=== PATIENT | female | born 1950 | race Caucasian/White ===

== ENCOUNTER → 2016-08-21 | Outpatient (CLI) | payer BC ==
--- NOTE | 2016-08-22 19:05 | Diagnostic Imaging Report ---
Bilateral screening mammogram The current study was also evaluated with a Computer Aided Detection (CAD) system. Indication: Screening. No current complaints stated on the questionnaire. COMPARISON: 11/09/15. FINDINGS: The breasts are composed of heterogeneously dense parenchyma which may decrease mammographic sensitivity. There is no mass, architectural distortion or suspicious cluster of calcification. Allowing for technique and positional differences, no suspicious change is seen. IMPRESSION: No significant change. ACR BI-RADS Category 2: Benign findings. Result letter will be mailed to the patient. Note: At least 10% of breast cancer is not imaged by mammography. Dictated by: Dictated on workstation # [id number]
== END ==
LOC: RAD 06:56
PROVIDERS: ATTEND Obstetrics & Gynecology
DX: Z12.31 Encounter for screening mammogram for malignant neoplasm of breast (principal)
CPT/HCPCS: 77067

== ENCOUNTER → 2017-08-29 | Outpatient (CLI) | payer BC ==
--- NOTE | 2017-08-29 11:48 | Diagnostic Imaging Report ---
Digital mammogram bilateral screening. The study was compared to the prior exam of 08/21/2016, 11/09/2015 and 07/17/2015. At this time, there are no current complaints. The current study was also evaluated with a Computer Aided Detection (CAD) system. FINDINGS: The fibroglandular tissue in both breasts is heterogeneously dense. This does limit the sensitivity of this exam. Overall, there does not appear to have been any significant change when compared to the prior study. No primary or secondary sign of malignancy is noted. IMPRESSION: There is no radiographic evidence for malignancy. ACR BI-RADS Category 1: Negative. Result letter will be mailed to the patient. Note: At least 10% of breast cancer is not imaged by mammography. Dictated by: Dictated on workstation # [id number]
== END ==
LOC: RAD 07:42
PROVIDERS: ATTEND Obstetrics & Gynecology
DX: Z12.31 Encounter for screening mammogram for malignant neoplasm of breast (principal)
CPT/HCPCS: 77067

== ENCOUNTER → 2018-09-01 | Outpatient (CLI) | payer MEDICARE ==
--- NOTE | 2018-09-02 11:10 | Diagnostic Imaging Report ---
INDICATION: Routine screening. EXAMINATION: Digital mammogram bilateral screening with 3-D tomosynthesis. The current study was also evaluated with a Computer Aided Detection (CAD) system. This study was compared to the prior exams of 08/29/2017, 08/21/2016, 11/09/2015 and 07/17/2015. At this time, there are no current complaints. FINDINGS: The fibroglandular tissue in both breasts is heterogeneously dense. This does limit the sensitivity of this exam. Overall, there does not appear to have been any significant change when compared to the prior study. No primary or secondary sign of malignancy is noted. IMPRESSION: There is no radiographic evidence for malignancy. ACR BI-RADS Category 1: Negative. Result letter will be mailed to the patient. Note: At least 10% of breast cancer is not imaged by mammography. Dictated by: Dictated on workstation # [id number]
== END ==
LOC: RAD 07:14
PROVIDERS: ATTEND Obstetrics & Gynecology
DX: Z12.31 Encounter for screening mammogram for malignant neoplasm of breast (principal)
CPT/HCPCS: 77067

== ENCOUNTER 2018-09-17 08:45 | Outpatient (CLI) | payer MEDICARE ==
[~2018-09-17] VITALS: Ht 160 cm; Wt 64.9 kg
[2018-09-17] MEDS ORDERED: ESTR1TAB24 PO (09:01)
[2018-09-17] MEDS ORDERED: CETI10TA20 PO (09:01)
[2018-09-17] MEDS ORDERED: CYCL10TA9 PO (09:01)
[2018-09-17] MEDS ORDERED: HYDR200T46 PO (09:01)
== END 2018-09-17 09:08 | disposition home or self-care (01) ==
LOC: PREOP 08:45
PROVIDERS: ATTEND Specialist
DX: Z01.818 Encounter for other preprocedural examination (principal)

== ENCOUNTER 2018-09-18 06:03 | Day surgery (SDC) | payer MEDICARE ==
[~2018-09-18] VITALS: Ht 160 cm; Wt 64.9 kg
[~2018-09-18 06:03] MED LIST: CETI10TA20 PO; CYCL10TA9 PO; ESTR1TAB24 PO; HYDR200T46 PO
--- OUTSIDE RECORDS SUMMARY | 2018-09-18 06:05 | XMS REPORT ---
Author Author WILTON NOBLES [facility] Address [address] [place] [address] Care Team Providers Care Gas Plant Technician Name Role Phone WILTON NOBLES Unavailable PROBLEMS Type Condition ICD9-CM Code [id number] Code Onset Dates Condition Status SNOMED Code Problem Need for prophylactic vaccination and inoculation, Influenza V04.81 Active [id number] ALLERGIES No Information ENCOUNTERS Encounter Location Date Diagnosis [place] [id number] [place] [phone] Feb, Encounter for immunization [place] [id number] [place] [phone] Mar, Encounter for immunization [place] [id number] [place] [phone] Mar, Encounter for immunization [place] [address] [phone] Feb, [place] [id number] [place] [phone] Feb, IMMUNIZATIONS Vaccine Route Administration Date Status FLUARIX QUAD (3 AND UP) 2017 IM Intramuscular Mar 06, 2017 Administered SOCIAL HISTORY Never Assessed REASON FOR VISIT Flu shot PLAN OF CARE VITAL SIGNS MEDICATIONS Unknown Medications RESULTS No Results PROCEDURES Procedure Date Ordered Result Body Site FLUARIX QUAD (3 & UP)-GSK-2015 Mar 06, 2017 SINGLE IMMUNIZATION ADMIN Mar 06, 2017 INSTRUCTIONS MEDICATIONS ADMINISTERED No Known Medications
--- OUTSIDE RECORDS SUMMARY | 2018-09-18 06:06 | XMS REPORT ---
Author Author RUBIN LAKHANI Organization [employer] Address Unknown Phone Unavailable Care Team Providers Care Learning Strategist Name Role Phone RUBIN LAKHANI CP Unavailable Allergies No Known Allergies Problems Problem Type Condition Code Onset Dates Condition Status Assessment Encounter for immunization Z23 Active Problem Need for prophylactic vaccination and inoculation, Influenza V04.81 Active Medications No Known Medications Procedures Procedure Coding System Code Date SINGLE IMMUNIZATION ADMIN CPT-4 41080 Mar 29, 2015 FLUARIX QUAD (3 & UP)-GSK-2014 CPT-4 16035 Mar 29, 2015 Results No Known Results Immunizations Vaccine Administration Date FLUARIX QUAD (3 & UP)-GSK-2014Mar 29, 2015 Summary Purpose [employer] Submission
--- OUTSIDE RECORDS SUMMARY | 2018-09-18 06:06 | XMS REPORT | Continuity of Care Document ---
Author Organization Unknown Address Unknown Allergies Active Description Code Type Severity Reaction Onset Reported/Identified Relationship to Patient Clinical Status Yes codeine [id number] Drug Allergy Unknown NAUSEA/VOMITING 09/17/2018 Medications There is no data. Problems Date Dx Coded Attending Type Code Diagnosis Diagnosed By 03/11/2014 V04.81 FLU SHOT 06/14/2014 Ot V76.12 06/14/2014 EILEEN FELIX, VALORIE Montes Ot V76.12 06/30/2014 EILEEN FELIX, VALORIE Montes Ot V76.12 07/17/2015 Ot V76.12 07/17/2015 VALORIE ARELLANO MD Ot V76.12 07/17/2015 EILEEN FELIX, VALORIE Montes Ot V76.12 07/21/2015 VALORIE ARELLANO MD Ot Z12.31 08/03/2015 VALORIE ARELLANO MD Ot Z12.31 08/23/2015 VALORIE ARELLANO MD Ot R92.8 11/10/2015 VALORIE ARELLANO MD Ot R92.8 OTH ABN AND INCONCLUSIVE FINDINGS ON DX 11/30/2015 VALORIE ARELLANO MD Ot R92.8 OTH ABN AND INCONCLUSIVE FINDINGS ON DX 08/21/2016 Ot V76.12 OTH SCREEN MAMMO-MALIGN NEOPLASM OF APURVA 08/21/2016 VALORIE ARELLANO MD Ot V76.12 OTH SCREEN MAMMO-MALIGN NEOPLASM OF APURVA 08/21/2016 VALORIE ARELLANO MD Ot V76.12 OTH SCREEN MAMMO-MALIGN NEOPLASM OF APURVA 08/21/2016 VALORIE ARELLANO MD Ot Z12.31 ENCNTR SCREEN MAMMOGRAM FOR MALIGNANT NE 08/21/2016 VALORIE ARELLANO MD Ot R92.8 OTH ABN AND INCONCLUSIVE FINDINGS ON DX 08/21/2016 VALORIE ARELLANO MD, Ot R92.8 OTH ABN AND INCONCLUSIVE FINDINGS ON DX 09/09/2016 VALORIE ARELLANO MD, Ot Z12.31 ENCNTR SCREEN MAMMOGRAM FOR MALIGNANT NE 09/01/2017 VALORIE ARELLANO MD, Ot Z12.31 ENCNTR SCREEN MAMMOGRAM FOR MALIGNANT NE 09/11/2017 VALORIE ARELLANO MD, Ot Z12.31 ENCNTR SCREEN MAMMOGRAM FOR MALIGNANT NE 08/25/2018 VALORIE ARELLANO MD, Ot V76.12 OTH SCREEN MAMMO-MALIGN NEOPLASM OF APURVA 08/25/2018 VALORIE ARELLANO MD, Ot V76.12 OTH SCREEN MAMMO-MALIGN NEOPLASM OF APURVA 08/25/2018 VALORIE ARELLANO MD, Ot Z12.31 ENCNTR SCREEN MAMMOGRAM FOR MALIGNANT NE 08/25/2018 VALORIE ARELLANO MD, Ot R92.8 OTH ABN AND INCONCLUSIVE FINDINGS ON DX 08/25/2018 VALORIE ARELLANO MD, Ot R92.8 OTH ABN AND INCONCLUSIVE FINDINGS ON DX 08/25/2018 VALORIE ARELLANO MD, Ot Z12.31 ENCNTR SCREEN MAMMOGRAM FOR MALIGNANT NE 08/25/2018 VALORIE ARELLANO MD, Ot Z12.31 ENCNTR SCREEN MAMMOGRAM FOR MALIGNANT NE 09/01/2018 VALORIE ARELLANO MD, Ot V76.12 OTH SCREEN MAMMO-MALIGN NEOPLASM OF APURVA 09/01/2018 VALORIE ARELLANO MD, Ot V76.12 OTH SCREEN MAMMO-MALIGN NEOPLASM OF APURVA 09/01/2018 VALORIE ARELLANO MD, Ot Z12.31 ENCNTR SCREEN MAMMOGRAM FOR MALIGNANT NE 09/01/2018 VALORIE ARELLANO MD, Ot R92.8 OTH ABN AND INCONCLUSIVE FINDINGS ON DX 09/01/2018 VALORIE ARELLANO MD, Ot R92.8 OTH ABN AND INCONCLUSIVE FINDINGS ON DX 09/01/2018 VALORIE ARELLANO MD, Ot Z12.31 ENCNTR SCREEN MAMMOGRAM FOR MALIGNANT NE 09/01/2018 VALORIE ARELLANO MD, Ot Z12.31 ENCNTR SCREEN MAMMOGRAM FOR MALIGNANT NE 09/02/2018 VALORIE ARELLANO MD, Ot Z12.31 ENCNTR SCREEN MAMMOGRAM FOR MALIGNANT NE 09/17/2018 CONOR FONSECA MD Ot Z01.818 ENCOUNTER FOR OTHER PREPROCEDURAL EXAMIN 09/17/2018 CONOR FONSECA MD Ot Z01.818 ENCOUNTER FOR OTHER PREPROCEDURAL EXAMIN 09/17/2018 CONOR FONSECA MD Ot Z01.818 ENCOUNTER FOR OTHER PREPROCEDURAL EXAMIN 09/17/2018 CONOR FONSECA MD Ot Z01.818 ENCOUNTER FOR OTHER PREPROCEDURAL EXAMIN 09/18/2018 VALORIE ARELLANO MD, Ot V76.12 OTH SCREEN MAMMO-MALIGN NEOPLASM OF APURVA 09/18/2018 VALORIE ARELLANO MD, Ot V76.12 OTH SCREEN MAMMO-MALIGN NEOPLASM OF APURVA 09/18/2018 VALORIE ARELLANO MD, Ot Z12.31 ENCNTR SCREEN MAMMOGRAM FOR MALIGNANT NE 09/18/2018 VALORIE ARELLANO MD, Ot R92.8 OTH ABN AND INCONCLUSIVE FINDINGS ON DX 09/18/2018 VALORIE ARELLANO MD, Ot R92.8 OTH ABN AND INCONCLUSIVE FINDINGS ON DX 09/18/2018 VALORIE ARELLANO MD, Ot Z12.31 ENCNTR SCREEN MAMMOGRAM FOR MALIGNANT NE 09/18/2018 VALORIE ARELLANO MD, Ot Z12.31 ENCNTR SCREEN MAMMOGRAM FOR MALIGNANT NE 09/18/2018 VALORIE ARELLANO MD, Ot Z12.31 ENCNTR SCREEN MAMMOGRAM FOR MALIGNANT NE Procedures There is no data. Results There is no data. Encounters ACCT No. Visit Date/Time Discharge Status Pt. Type Provider Facility Loc./Unit Complaint [id number] 04/11/2014 09:24:00 04/11/2014 23:59:59 CLS Outpatient [id number] 09/17/2018 08:45:00 09/17/2018 09:08:00 DIS Outpatient CONOR FONSECA MD [facility] PREOP RIGHT CATARACT EXTRACTION WITH IOL [id number] 09/01/2018 07:14:00 09/01/2018 23:59:59 CLS Outpatient VALORIE ARELLANO MD [facility] RAD ROUTINE SCREENING [id number] 08/29/2017 07:42:00 08/29/2017 23:59:59 CLS Outpatient VALORIE ARELLANO MD [facility] RAD Z12.31 [id number] 08/21/2016 06:56:00 08/21/2016 23:59:59 CLS Outpatient VALORIE ARELLANO MD [facility] RAD SCREENING [id number] 11/09/2015 08:37:00 11/09/2015 23:59:59 CLS Outpatient VALORIE ARELLANO MD [facility] RAD 3 MO F/U R BREAST [id number] 07/26/2015 07:28:00 07/26/2015 23:59:59 CLS Outpatient VALORIE ARELLANO MD [facility] RAD ABNORMAL MAMMOGRAM [id number] 07/17/2015 14:48:00 07/17/2015 23:59:59 CLS Outpatient VALORIE ARELLANO MD [facility] RAD SCREENING [id number] 06/14/2014 07:20:00 06/14/2014 23:59:59 CLS Outpatient VALORIE ARELLANO MD [facility] RAD SCREENING [id number] 05/10/2013 06:50:00 05/10/2013 23:59:59 CLS Outpatient VALORIE ARELLANO MD [facility] RAD SCREENING [id number] 09/25/2018 07:30:00 PEN Preadmit CONOR FONSECA MD [facility] CATARACT LEFT EYE [id number] 09/18/2018 06:03:00 ACT Outpatient CONOR FONSECA MD [facility] LEFT CATARACT [id number] 09/30/2011 09:40:00 Document Registration [id number] 07/06/2014 09:31:23 07/06/2014 23:59:59 CLS Outpatient Shoaib-Phillip, P Xi
--- OUTSIDE RECORDS SUMMARY | 2018-09-18 06:06 | XMS REPORT ---
Author RUBIN Anders [facility] e[employer] Address Unknown Phone Unavailable Care Team Providers Care Zigzag Appliquer Name Role Phone RUBIN LAKHANI CP Unavailable Allergies No Known Allergies Problems Problem Type Condition Code Onset Dates Condition Status Assessment Encounter for immunization Z23 Active Problem Need for prophylactic vaccination and inoculation, Influenza V04.81 Active Medications No Known Medications Procedures Procedure Coding System Code Date SINGLE IMMUNIZATION ADMIN CPT-4 51085 Apr 09, 2016 FLUARIX QUAD P-FREE 3 AND UP .50 2015 CPT-4 51534 Apr 09, 2016 Results No Known Results Immunizations Vaccine Administration Date FLUARIX QUAD P-FREE 3 AND UP .50 2015Apr 09, 2016 Summary Purpose eClinicalWorks Submission
[2018-09-18 06:07] VITALS: BP 141/88
[2018-09-18] MEDS ORDERED: TIMOLOL MALEATE 0.5% 5 ML (TIMOPTIC) BTL OU PRN (06:15)
[2018-09-18] MEDS ORDERED: POVIDONE (BETADINE) OPHTH SOLN 5% 30 ML OP ONE (06:15)
[2018-09-18] MEDS ORDERED: MOXIFLOXACIN OPHTH SOLN 5 MG/ML 0.3 ML SYRINGE OP ONE (06:15)
[2018-09-18] MEDS ORDERED: LIDOCAINE PF 1% 2 ML AMP IR PRN (06:15)
[2018-09-18] MEDS: TETRACAINE 0.5% OPHTH SOLN 4 ML BTL (SINGLE DOSE ONLY) OU PRN ×4 (06:32→06:52)
[2018-09-18] MEDS: CYCLOPENTOLATE 1% (CYCLOGYL) 2 ML DROPS OP SCH ×3 (06:41→06:52)
[2018-09-18] MEDS: PHENYLEPHRINE 10% OPHTH (NEO-SYN) 5 ML BTL OU SCH ×3 (06:41→06:52)
[2018-09-18] MEDS ORDERED: MIDAZOLAM 2 MG/2 ML (VERSED) VIAL ONE (06:44)
--- NOTE | 2018-09-18 06:59 | Ophthalmologist Pre-Op Note ---
Pre-Operative Progress Note H&P Reviewed The H&P was reviewed, patient examined and no changes noted. Date H&P Reviewed: Sep 18, 2018 Time H&P Reviewed: 06:59 Pre-Op Dx Secondary Cataract, Right Eye CONOR FONSECA MD Sep 18, 2018 06:59
--- NOTE | 2018-09-18 07:18 | Ophthalmologist Pre-Op Note ---
Pre-Operative Progress Note H&P Reviewed The H&P was reviewed, patient examined and no changes noted. Date H&P Reviewed: Sep 18, 2018 Time H&P Reviewed: 07:18 Pre-Op Dx Cataract, Left Eye CONOR FONSECA MD Sep 18, 2018 07:18
[2018-09-18] MEDS ORDERED: acetaZOLAMIDE ER 500 MG CAP (DIAMOX SEQUELS) PO ONE (07:30)
--- NOTE | 2018-09-18 07:41 | Ophthalmology Operative Report ---
Cataract removal/placement IOL PREOPERATIVE DIAGNOSIS: Cataract Left Eye POSTOPERATIVE DIAGNOSIS: Cataract Left Eye PROCEDURE: Cataract removal and placement of posterior chamber implant, left eye SURGEON: Jaswant Fonseca ANESTHESIA: Topical with sedation COMPLICATIONS: None ESTIMATED BLOOD LOSS: Minimal DESCRIPTION OF PROCEDURE: After proper informed consent was obtained, the patient, a 68 female, was taken to the Operating Room and the left eye was anesthetized with tetracaine. The left eye was then prepped and draped in the usual manner. A wire lid speculum was placed. A paracentesis was made at the left hand position. Preservative free lidocaine was injected into the anterior chamber followed by viscoelastic. A clear corneal incision was made in the temporal position. A capsulorrhexis was preformed and the central nuclear and cortical material were removed. The posterior capsule was polished and an Vitor 23.0 AU00T0 was placed into the capsular bag. The residual viscoelastic was aspirated and balanced saline solution was injected into the anterior chamber. Moxifloxacin was injected into the anterior chamber. The wound was checked and found to be water tight. The patient tolerated the procedure well without complications. JASWANT FONSECA MD Sep 18, 2018 07:41
[2018-09-18 07:48] VITALS: BP 122/74
--- NOTE | 2018-09-18 11:55 | Anesthesia-General Post-Op ---
MAC Patient Condition Mental Status/LOC: Same as Preop Cardiovascular: Satisfactory Nausea/Vomiting: Absent Respiratory: Satisfactory Pain: Controlled Complications: Absent Post Op Complications Complications None Follow Up Care/Instructions Patient Instructions None needed. Anesthesiology Discharge Order Discharge Order Patient is doing well, no complaints, stable vital signs, no apparent adverse anesthesia problems. No complications reported per nursing. JEANNA WETZEL CRNA Sep 18, 2018 11:55
== END 2018-09-18 07:48 | disposition home or self-care (01) ==
LOC: SDC 06:03
PROVIDERS: ATTEND Specialist
DX: H25.12 Age-related nuclear cataract, left eye (principal); E78.00 Pure hypercholesterolemia, unspecified; M35.00 Sjogren syndrome, unspecified

== ENCOUNTER 2018-09-22 05:48 | Outpatient (CLI) | payer MEDICARE ==
[~2018-09-22] VITALS: Ht 160 cm; Wt 64.9 kg
== END 2018-09-22 14:56 | disposition home or self-care (01) ==
LOC: PREOP 05:48
PROVIDERS: ATTEND Specialist
DX: Z01.818 Encounter for other preprocedural examination (principal)

== ENCOUNTER 2018-09-25 06:05 | Day surgery (SDC) | payer MEDICARE ==
[~2018-09-25] VITALS: Ht 160 cm; Wt 64.9 kg
[2018-09-25 06:05] VITALS: BP 130/80
--- OUTSIDE RECORDS SUMMARY | 2018-09-25 06:13 | XMS REPORT | Continuity of Care Document ---
Author Organization Unknown Address Unknown Allergies Active Description Code Type Severity Reaction Onset Reported/Identified Relationship to Patient Clinical Status Yes codeine [id number] Drug Allergy Unknown NAUSEA/VOMITING 09/17/2018 Medications There is no data. Problems Date Dx Coded Attending Type Code Diagnosis Diagnosed By 03/11/2014 V04.81 FLU SHOT 06/14/2014 Ot V76.12 06/14/2014 EILEEN FELIX, VALORIE Montes Ot V76.12 06/30/2014 EILEEN FELIX, VALORIE Montes Ot V76.12 07/17/2015 Ot V76.12 07/17/2015 VALORIE ARELLANO MD Ot V76.12 07/17/2015 VALORIE ARELLANO MD Ot V76.12 07/21/2015 VALORIE ARELLANO MD Ot [...] ABN AND INCONCLUSIVE FINDINGS ON DX 09/18/2018 AVLORIE ARELLANO MD, Ot Z12.31 ENCNTR SCREEN MAMMOGRAM FOR MALIGNANT NE 09/18/2018 VALORIE ARELLANO MD, Ot Z12.31 ENCNTR SCREEN MAMMOGRAM FOR MALIGNANT NE 09/18/2018 VALORIE ARELLANO MD, Ot Z12.31 ENCNTR SCREEN MAMMOGRAM FOR MALIGNANT NE Procedures There is no data. Results There is no data. Encounters ACCT No. Visit Date/Time Discharge Status Pt. Type Provider Facility Loc./Unit Complaint [id number] 04/11/2014 09:24:00 04/11/2014 23:59:59 CLS Outpatient [id number] 09/18/2018 06:03:00 09/18/2018 07:48:00 DIS Outpatient CONOR FONSECA MD [facility] SDC LEFT CATARACT [id number] 09/17/2018 08:45:00 09/17/2018 09:08:00 DIS Outpatient CONOR FONSECA MD [facility] PREOP RIGHT CATARACT EXTRACTION WITH IOL [id number] 09/01/2018 07:14:00 09/01/2018 23:59:59 CLS Outpatient VALORIE ARELLANO MD [facility] RAD ROUTINE SCREENING [id number] 08/29/2017 07:42:00 08/29/2017 23:59:59 CLS Outpatient VALORIE ARELLANO MD [facility] RAD Z12.31 [id number] 08/21/2016 06:56:00 08/21/2016 23:59:59 CLS Outpatient VALORIE ARELLANO MD [facility] RAD SCREENING [id number] 11/09/2015 08:37:00 11/09/2015 23:59:59 CLS Outpatient VALORIE ARELLANO MD [facility] RAD 3 MO F/U R BREAST [id number] 07/26/2015 07:28:00 07/26/2015 23:59:59 CLS Outpatient VALORIE ARELLANO MD [facility] RAD ABNORMAL MAMMOGRAM [id number] 07/17/2015 14:48:00 07/17/2015 23:59:59 CLS Outpatient VALORIE ARELLANO MD [facility] RAD SCREENING [id number] 06/14/2014 07:20:00 06/14/2014 23:59:59 CLS Outpatient VALORIE ARELLANO MD [facility] RAD SCREENING [id number] 05/10/2013 06:50:00 05/10/2013 23:59:59 CLS Outpatient VALORIE ARELLANO MD [facility] RAD SCREENING [id number] 09/25/2018 07:30:00 PEN Preadmit CONOR FONSECA MD [facility] SD CATARACT RIGHT EYE [id number] 09/30/2011 09:40:00 Document Registration [id number] 07/06/2014 09:31:23 07/06/2014 23:59:59 [facility] Outpatient Blaine Hurley
[2018-09-25] MEDS ORDERED: LIDOCAINE PF 1% 2 ML AMP IR PRN (06:15)
[2018-09-25] MEDS ORDERED: TIMOLOL MALEATE 0.5% 5 ML (TIMOPTIC) BTL OU PRN (06:15)
[2018-09-25] MEDS ORDERED: POVIDONE (BETADINE) OPHTH SOLN 5% 30 ML OP ONE (06:15)
[2018-09-25] MEDS ORDERED: MOXIFLOXACIN OPHTH SOLN 5 MG/ML 0.3 ML SYRINGE OP ONE (06:15)
[2018-09-25] MEDS: TETRACAINE 0.5% OPHTH SOLN 4 ML BTL (SINGLE DOSE ONLY) OU PRN ×3 (06:21→06:38)
[2018-09-25] MEDS: PHENYLEPHRINE 10% OPHTH (NEO-SYN) 5 ML BTL OU SCH ×3 (06:33→06:45)
[2018-09-25] MEDS: CYCLOPENTOLATE 1% (CYCLOGYL) 2 ML DROPS OP SCH ×3 (06:33→06:45)
[2018-09-25] MEDS ORDERED: MIDAZOLAM 2 MG/2 ML (VERSED) VIAL ONE (06:48)
--- NOTE | 2018-09-25 06:59 | Ophthalmologist Pre-Op Note ---
Pre-Operative Progress Note H&P Reviewed The H&P was reviewed, patient examined and no changes noted. Date H&P Reviewed: September 25, 2018 Time H&P Reviewed: 06:59 Pre-Op Dx Cataract, Right Eye CONOR FONSECA MD September 25, 2018 06:59
--- NOTE | 2018-09-25 07:22 | Ophthalmology Operative Report ---
Cataract removal/placement IOL PREOPERATIVE DIAGNOSIS: Cataract Right Eye POSTOPERATIVE DIAGNOSIS: Cataract Right Eye PROCEDURE: Cataract removal and placement of posterior chamber implant, right eye SURGEON: Jaswant Fonseca ANESTHESIA: Topical with sedation COMPLICATIONS: None ESTIMATED BLOOD LOSS: Minimal DESCRIPTION OF PROCEDURE: After proper informed consent was obtained, the patient, a 68 female, was taken to the Operating Room and the right eye was anesthetized with tetracaine. The right eye was then prepped and draped in the usual manner. A wire lid speculum was placed. A paracentesis was made at the left hand position. Preservative free lidocaine was injected into the anterior chamber followed by viscoelastic. A clear corneal incision was made in the temporal position. A capsulorrhexis was preformed and the central nuclear and cortical material were removed. The posterior capsule was polished and Vitor 23.5 AU00T0 IOL was placed into the capsular bag. The residual viscoelastic was aspirated and balanced saline solution was injected into the anterior chamber. Moxifloxacin was injected into the anterior chamber. The wound was checked and found to be water tight. The patient tolerated the procedure well without complications. JASWANT FONSECA MD September 25, 2018 07:22
[2018-09-25 07:28] VITALS: BP 122/70
[2018-09-25] MEDS ORDERED: acetaZOLAMIDE ER 500 MG CAP (DIAMOX SEQUELS) PO ONE (07:30)
--- NOTE | 2018-09-25 10:33 | Anesthesia-General Post-Op ---
MAC Patient Condition Mental Status/LOC: Same as Preop Cardiovascular: Satisfactory Nausea/Vomiting: Absent Respiratory: Satisfactory Pain: Controlled Complications: Absent Post Op Complications Complications None Follow Up Care/Instructions Patient Instructions None needed. Anesthesiology Discharge Order Discharge Order Patient was seen after the procedure this morning and she was doing well, no complaints, stable vital signs, no apparent adverse anesthesia problems. FREDY PALMER DO September 25, 2018 10:33
== END 2018-09-25 07:28 | disposition home or self-care (01) ==
LOC: SDC 06:05
PROVIDERS: ATTEND Specialist
DX: H25.11 Age-related nuclear cataract, right eye (principal); E78.00 Pure hypercholesterolemia, unspecified; M35.00 Sjogren syndrome, unspecified

== ENCOUNTER 2018-12-09 06:11 | Outpatient (CLI) | payer MEDICARE ==
[~2018-12-09] VITALS: Ht 160 cm; Wt 64.9 kg
== END 2018-12-10 09:55 | disposition home or self-care (01) ==
LOC: PREOP 06:11
PROVIDERS: ATTEND Specialist
DX: Z01.818 Encounter for other preprocedural examination (principal)

== ENCOUNTER 2018-12-11 06:39 | Day surgery (SDC) | payer MEDICARE ==
[~2018-12-11] VITALS: Ht 160 cm; Wt 64.9 kg
[2018-12-11 06:55] VITALS: BP 133/77
[2018-12-11] MEDS: TROPICAMIDE 1% OPH SOLN (MYDRIACYL) 15 ML BTL OU PRN ×3 (06:56→07:09)
[2018-12-11] MEDS: TETRACAINE 0.5% OPHTH SOLN 4 ML BTL (SINGLE DOSE ONLY) OU PRN ×3 (06:56→07:09)
[2018-12-11] MEDS: PHENYLEPHRINE 10% OPHTH (NEO-SYN) 5 ML BTL OU PRN ×3 (06:56→07:09)
--- NOTE | 2018-12-11 07:35 | Ophthalmologist Pre-Op Note ---
Pre-Operative Progress Note H&P Reviewed The H&P was reviewed, patient examined and no changes noted. Date H&P Reviewed: Dec 11, 2018 Time H&P Reviewed: 07:35 Pre-Op Dx Secondary Cataract, Bilateral Eyes CONOR FONSECA MD Dec 11, 2018 07:35
--- NOTE | 2018-12-11 07:36 | Ophthalmology Operative Report ---
YAG Capsulotomy PREOPERATIVE DIAGNOSIS: Secondary Cataract Bilateral POSTOPERATIVE DIAGNOSIS: Secondary Cataract Bilateral PROCEDURE: YAG Capsulotomy, Bilateral SURGEON: Jaswant Fonseca ANESTHESIA: Topical anesthesia COMPLICATIONS: None ESTIMATED BLOOD LOSS: Minimal DESCRIPTION OF PROCEDURE: After proper informed consent was obtained, the patient's, a 68 female , received one drop of Tropicamide and one drop of Tetracaine in each eye. The patient was then placed at the YAG laser and using a power of [2.8 ] millijoules and bursts [ 10] right eye and [ 8] left eye were used to fashion a central capsulotomy. The patient tolerated the procedure well without complications. JASWANT FONSECA MD Dec 11, 2018 07:36
== END 2018-12-11 07:32 | disposition home or self-care (01) ==
LOC: SDC 06:39
PROVIDERS: ATTEND Specialist
DX: H26.493 Other secondary cataract, bilateral (principal); E78.00 Pure hypercholesterolemia, unspecified; M35.00 Sjogren syndrome, unspecified; M19.90 Unspecified osteoarthritis, unspecified site; Z88.5 Allergy status to narcotic agent; Z79.52 Long term (current) use of systemic steroids; Z79.891 Long term (current) use of opiate analgesic; Z79.899 Other long term (current) drug therapy; Z90.710 Acquired absence of both cervix and uterus; Z82.49 Family history of ischemic heart disease and other diseases of the circulatory system

== ENCOUNTER 2019-05-14 13:25 | Outpatient (RCR) | payer MEDICARE | END 2019-05-18 | disposition home or self-care (01) | PROVIDERS: ATTEND Nurse Practitioner Family | DX: M54.9 Dorsalgia, unspecified (principal); R26.89 Other abnormalities of gait and mobility; Z98.1 Arthrodesis status ==

== ENCOUNTER 2019-08-11 09:35 | Outpatient (RCR) | payer MEDICARE ==
[~2019-08-11 09:35] MED LIST changes: -CETI10TA20 PO; +CETI10TA21 PO
== END 2019-08-18 | disposition home or self-care (01) ==
PROVIDERS: ATTEND Nurse Practitioner Family
DX: M54.9 Dorsalgia, unspecified (principal); R26.89 Other abnormalities of gait and mobility; Z98.1 Arthrodesis status

== ENCOUNTER → 2019-10-19 | Outpatient (CLI) | payer MEDICARE ==
--- NOTE | 2019-10-19 13:03 | Diagnostic Imaging Report ---
INDICATION: Routine screening. COMPARISON: 09/01/2018 and 08/29/2017. TECHNIQUE: 2D and 3D bilateral screening mammography was performed with CAD. FINDINGS: Both breasts are heterogeneously dense, limiting the sensitivity of mammography. There is a cluster of microcalcifications in the upper and outer aspect of the right breast at mid depth which appear slightly more prominent than on prior exams. No mass is seen. No other suspicious microcalcifications are identified. The axillae are unremarkable. IMPRESSION: Right breast calcifications. Additional views are recommended for further evaluation. ACR BI-RADS Category 0: Incomplete. (Needs additional imaging evaluation). Result letter will be mailed to the patient. Note: At least 10% of breast cancer is not imaged by mammography. Dictated by: Dictated on workstation # [id number]
== END ==
LOC: RAD 07:16
PROVIDERS: ATTEND Obstetrics & Gynecology
DX: Z12.31 Encounter for screening mammogram for malignant neoplasm of breast (principal); R92.1 Mammographic calcification found on diagnostic imaging of breast
CPT/HCPCS: 77063; 77067

== ENCOUNTER → 2019-10-22 | Outpatient (CLI) | payer MEDICARE ==
--- NOTE | 2019-10-22 14:04 | Diagnostic Imaging Report ---
INDICATION: Right breast calcifications. Patient presents for additional views. Correlation is made with recent screening studies from 10/19/2019 and 09/01/2018. Unilateral right 2-D and 3-D diagnostic mammography was performed. This includes magnification CC and ML views as well as 90 degree lateral views. Calcifications in the upper and outer aspect of the right breast at anterior to mid depth are noted. These appear to be primarily punctate. No definite pleomorphism is seen. No soft tissue nodularity is identified. IMPRESSION: BI-RADS 3. Likely benign calcifications upper outer right breast. Follow-up in 6 months recommended to confirm stability. ACR BI-RADS Category 3: Probably benign findings. Result letter will be mailed to the patient. Note: At least 10% of breast cancer is not imaged by mammography. Dictated by: Dictated on workstation # [id number]
== END ==
LOC: RAD 13:14
PROVIDERS: ATTEND Obstetrics & Gynecology
DX: R92.8 Other abnormal and inconclusive findings on diagnostic imaging of breast (principal)

== ENCOUNTER 2020-02-01 10:30 | Outpatient (RCR) | payer MEDICARE | END 2020-02-06 | disposition home or self-care (01) | PROVIDERS: ATTEND Nurse Practitioner Family | DX: M54.9 Dorsalgia, unspecified (principal); R26.89 Other abnormalities of gait and mobility; Z98.1 Arthrodesis status ==

== ENCOUNTER 2020-02-22 10:12 | Outpatient (RCR) | payer MEDICARE ==
[~2020-02-22 10:12] MED LIST changes: -CETI10TA21 PO; +CETI10TA49 PO
== END 2020-05-08 | disposition home or self-care (01) ==
PROVIDERS: ATTEND Nurse Practitioner Family
DX: M54.9 Dorsalgia, unspecified (principal); R26.89 Other abnormalities of gait and mobility; Z98.1 Arthrodesis status

== ENCOUNTER → 2020-04-03 | Outpatient (CLI) | payer MEDICARE ==
--- NOTE | 2020-04-03 09:02 | Diagnostic Imaging Report ---
EXAM: RIGHT UPPER QUADRANT ULTRASOUND DATE: April 03, 2020. COMPARISON: None. INDICATION: 70-year-old female, diarrhea and abdominal pain. PROCEDURE: Two-dimensional grayscale and color doppler ultrasound examination of the right upper quadrant is performed. FINDINGS: Liver: The liver is of normal size and echotexture without solid or cystic masses. The main portal vein is patent with normal directional flow and velocity. Bile ducts and gallbladder: There is no pericholecystic fluid, gallbladder wall thickening or gallstones. The gallbladder wall measures 0.2 cm. There is no intrahepatic bile duct dilation. The common bile duct is not well demonstrated. Right kidney: Unremarkable right kidney. No hydronephrosis. The right kidney measures 11.2 cm x 4.4 cm x 5.0 cm. Pancreas: Very limited evaluation of the pancreas is without obvious abnormality. IMPRESSION: 1. No evidence of cholelithiasis or acute cholecystitis. 2. The common bile duct is not well seen. There is no intrahepatic bile duct dilation. Dictated by: Dictated on workstation # [id number]
== END ==
LOC: RAD 07:00
PROVIDERS: ATTEND Family Medicine
DX: R19.7 Diarrhea, unspecified (principal); R10.9 Unspecified abdominal pain
CPT/HCPCS: 76705

== ENCOUNTER → 2020-04-12 | Outpatient (CLI) | payer MEDICARE ==
--- NOTE | 2020-04-12 09:20 | Diagnostic Imaging Report ---
Indication: Right breast calcifications. Patient presents for 6 month follow-up. Correlation is made with prior mammogram from 10/22/2019. Unilateral right 2-D and 3-D diagnostic mammography was performed. Calcifications in the upper outer right breast mid depth appear to be stable. Nodular density inferior and inner right breast is stable. No new mass or malignant appearing microcalcifications are seen. Right axilla is unremarkable. IMPRESSION: BI-RADS 3. Stable right breast calcifications. These now show 6 months of stability. Additional six-month follow-up is recommended to show continued stability. ACR BI-RADS Category 3: Probably benign findings. Result letter will be mailed to the patient. Note: At least 10% of breast cancer is not imaged by mammography. Dictated by: Dictated on workstation # [id number]
== END ==
LOC: RAD 09:15
PROVIDERS: ATTEND Obstetrics & Gynecology
DX: R92.8 Other abnormal and inconclusive findings on diagnostic imaging of breast (principal)
CPT/HCPCS: 77065; G0279

== ENCOUNTER 2020-04-28 05:33 | Outpatient (RCR) | payer MEDICARE ==
[~2020-04-28] VITALS: Ht 160 cm; Wt 65.9 kg
== END 2020-04-28 10:02 | disposition home or self-care (01) ==
LOC: PREOP 05:33
PROVIDERS: ATTEND Surgery
DX: Z01.812 Encounter for preprocedural laboratory examination (principal); Z12.11 Encounter for screening for malignant neoplasm of colon; Z20.828 Contact with and (suspected) exposure to other viral communicable diseases
CPT/HCPCS: 87635

== ENCOUNTER 2020-05-02 07:00 | Day surgery (SDC) | payer MEDICARE ==
[2020-05-02] VITALS (7 sets, daily range): BP systolic 105–148; BP diastolic 61–88
[~2020-05-02] VITALS: Ht 160 cm; Wt 65.9 kg
[~2020-05-02 07:00] MED LIST changes: +LACTATED RINGERS 1,000 ML IV ONE
[2020-05-02] MEDS ORDERED: LACTATED RINGERS 1,000 ML IV STA (07:18)
[2020-05-02] MEDS ORDERED: MIDAZOLAM 2 MG/2 ML (VERSED) VIAL ONE (07:20)
[2020-05-02] MEDS ORDERED: PROPOFOL INJECTION 50 ML IV ONE (07:20)
--- NOTE | 2020-05-02 08:37 | Progress Note-Post Operative ---
Post-Operative Progess Note Surgeon (s)/Senior Medical Transcriptionist (s) Surgeon FLIP GLASGOW DO Senior Medical Transcriptionist: na Pre-Operative Diagnosis screening colonoscopy Post-Operative Diagnosis diverticulosis, internal hemorrhoids Procedure & Operative Findings Date of Procedure 05/02/20 Procedure Performed/Findings colonoscopy Anesthesia Type per hopper attendant Estimated Blood Loss Estimated blood loss (mL): none Specimens/Packing Specimens Removed na FLIP GLASGOW DO May 02, 2020 08:37
--- NOTE | 2020-05-02 08:38 | Discharge Inst-Simple/Standard ---
Discharge Inst-Standard Patient Instructions/Follow Up Plan of Care/Instructions/FU: Repeat colonoscopy 10 years unless family history of colon cancer and would be 5 years. Any issues with bowels before then be seen at that time. High fiber diet for diverticulosis. You do not need follow up with me unless you wish to discuss further. Activity as Tolerated: Yes Discharge Diet: Regular Diet (high fiber) FLIP GLASGOW DO May 02, 2020 08:38
--- NOTE | 2020-05-02 09:16 | Anesthesia-General Post-Op ---
MAC Patient Condition Mental Status/LOC: Same as Preop Cardiovascular: Satisfactory Nausea/Vomiting: Absent Respiratory: Satisfactory Pain: Controlled Complications: Absent Post Op Complications Complications None Follow Up Care/Instructions Patient Instructions None needed. Anesthesiology Discharge Order Discharge Order Patient is doing well, no complaints, stable vital signs, no apparent adverse anesthesia problems. No complications reported per nursing. SRINIVASAN DIANA CRNA May 02, 2020 09:16
--- NOTE | 2020-05-02 13:11 | OPERATIVE REPORT ---
DATE OF SERVICE: 05/02/2020 PREOPERATIVE DIAGNOSIS: Screening colonoscopy. POSTOPERATIVE DIAGNOSES: Diverticulosis and internal hemorrhoids. PROCEDURE: Colonoscopy. SURGEON: Flip Enriquez DO ANESTHESIA: Per HEAD WRESTLING COACH. ESTIMATED BLOOD LOSS: None. COMPLICATIONS: None. SPECIMENS: None. INDICATIONS: The patient is a 70-year-old female with needing screening colonoscopy. She understands risks and benefits of procedure and wished to proceed. Consent was signed in the chart. DESCRIPTION OF PROCEDURE: The patient was taken to endoscopy suite, placed in left lateral recumbent position. Timeout was performed. Digital rectal exam was performed. No palpable polyps, masses or ulcerations. There is some internal hemorrhoids. Scope was inserted in the rectum and advanced all the way to cecum with minimal difficulty. Prep was adequate. Scope was then slowly retracted back. There were no polyps, mass, ulceration of the cecum, ascending, transverse, descending and sigmoid colon. In the sigmoid colon, diverticulosis present. Scope was retroflexed in the rectum, noting no other pathology except for hemorrhoids. Scope was returned to its normal position, slowly withdrawn until completely removed. The patient tolerated procedure well without any complications. She was taken to recovery room in stable condition. RECOMMENDATIONS: The patient will recommend high fiber diet. We will need repeat colonoscopy in 10 years unless family history, which was then 5 years and also evaluating risks and benefits of doing so. Any issues before that be seen at that time. Job ID: [id number] DocumentID: [id number] Dictated Date: 05/02/2020 08:45:46 Coal Feeder Operator Date: 05/02/2020 13:11:18 Dictated By: FLIP ENRIQUEZ DO
== END 2020-05-02 09:25 | disposition home or self-care (01) ==
LOC: ENDO 07:00
PROVIDERS: ATTEND Surgery
DX: Z12.11 Encounter for screening for malignant neoplasm of colon (principal); K57.30 Diverticulosis of large intestine without perforation or abscess without bleeding; K64.8 Other hemorrhoids; J45.909 Unspecified asthma, uncomplicated; Z79.899 Other long term (current) drug therapy; Z88.5 Allergy status to narcotic agent; Z90.710 Acquired absence of both cervix and uterus; Z82.49 Family history of ischemic heart disease and other diseases of the circulatory system

== ENCOUNTER → 2020-11-15 | Outpatient (CLI) | payer MEDICARE ==
[~2020-11-15] MED LIST changes: -LACTATED RINGERS 1,000 ML IV ONE
--- NOTE | 2020-11-15 10:22 | Diagnostic Imaging Report ---
INDICATION: Six-month follow-up right breast calcifications. Correlation is made prior mammogram 04/12/2020, 10/19/2019 as well as 09/01/2018. 2-D and 3-D bilateral diagnostic mammography was performed with CAD. Both breasts remain heterogeneously dense, limiting the sensitivity of mammography. The cluster of microcalcifications in the upper and outer right breast mid depth are stable. No new mass or malignant appearing microcalcifications are seen. Axillae are unremarkable. IMPRESSION: BI-RADS Category 3 Stable right breast calcifications. These now show one year of stability. Patient should return in 6 months for additional follow-up to confirm stability. ACR BI-RADS Category 3: Probably benign findings. Result letter will be mailed to the patient. Note: At least 10% of breast cancer is not imaged by mammography. Dictated by: Dictated on workstation # [id number]
== END ==
LOC: RAD 09:15
PROVIDERS: ATTEND Obstetrics & Gynecology
DX: Z12.31 Encounter for screening mammogram for malignant neoplasm of breast (principal); R92.8 Other abnormal and inconclusive findings on diagnostic imaging of breast; R92.1 Mammographic calcification found on diagnostic imaging of breast
CPT/HCPCS: 77066; G0279; 77062

== ENCOUNTER → 2021-05-22 | Outpatient (CLI) | payer MEDICARE ==
[~2021-05-22] MED LIST changes: +CYCL10TA25 PO; -CYCL10TA9 PO
--- NOTE | 2021-05-22 15:05 | Diagnostic Imaging Report ---
INDICATION: Postmenopausal. COMPARISON: None. FINDINGS: The bone mineral density of the hips and femoral necks was measured. By history, the patient has had a prior fusion of the lumbar spine and consequently the bone mineral density of the spine could not be obtained. The total T score for the left hip is 0.1 and for the right hip 0.4. The T score for the left femoral neck is -0.5 and for the right -0.7. All of these values are within normal limits. AP Spine L1-L4: [BMD (g/cm2): na] [T-Score: na] [Z-Score: na] [BMD Previous: na] [BMD % Change: na] LT Hip Neck: [BMD (g/cm2): 0.963] [T-Score: -0.5] [Z-Score: 1.2] LT Hip Total: [BMD (g/cm2):1.017] [T-Score:0.1] [Z-Score: 1.6] [BMD Previous: na] [BMD % Change: na] RT Hip Neck: [BMD (g/cm2):0.937] [T-Score:-0.7] [Z-Score:1.0] RT Hip Total: [BMD (g/cm2):1.055] [T-score:0.4] [Z-Score:1.9] [BMD Previous:na] [BMD % Change:na] *Indicates significant change from prior examination based on 95% confidence level. World Health Organization criteria for BMD interpretation classify patients as Normal (T-score at or above -1.0), Osteopenic (T-score between -1.0 and -2.5) or Osteoporotic (T-score at or below -2.5). LIMITATIONS AND MODIFICATION: None. FRACTURE RISK (FRAX SCORE): The ten year probability of (%): Major Osteoporotic Fracture: [na] Hip Fracture: [na] IMPRESSION: 1. The bone mineral density of the hips and femoral necks is within normal limits. 2. The bone mineral density of the spine could not be calculated due to prior back surgery. 3. See below National Osteoporosis Foundation guidelines on when to potentially initiate pharmacologic therapy. Based on the National Osteoporosis Foundation Guidelines, pharmacologic treatment should be initiated in any of the following, unless clinical conditions suggest otherwise: * Any patient with prior fragility fracture of the hip or vertebrae. A spine fracture indicates 5X risk for subsequent spine fracture and 2X risk for subsequent hip fracture. * Osteoporosis (T-score <-2.5). * Postmenopausal women and men age 50 and older with low bone mass/osteopenia (T-score between -1.0 and -2.5) by DXA and 10-year major osteoporotic fracture greater than 20% or a 10-year probability of hip fracture greater than 3%. These fracture risks are supplied above in the FRAX score, if applicable. * Clinician judgement and/or patient preferences may indicate treatment for people with 10-year fracture probabilities above or below these levels. Dictated by: Dictated on workstation # [id number]
== END ==
LOC: RAD 10:30
PROVIDERS: ATTEND Nurse Practitioner Family
DX: Z78.0 Asymptomatic menopausal state (principal)
CPT/HCPCS: 77080

== ENCOUNTER → 2021-06-13 | Outpatient (CLI) | payer MEDICARE ==
--- NOTE | 2021-06-13 14:19 | Diagnostic Imaging Report ---
INDICATION: Right breast calcifications. Patient presents for a 6 month followup. COMPARISON: Correlation is made with the prior mammograms from 11/15/2020 and 04/12/2020. TECHNIQUE: Unilateral right 2D and 3D diagnostic mammography was performed with CAD. FINDINGS: The right breast is heterogeneously dense, limiting the sensitivity of mammography. The cluster of microcalcifications in the upper and outer right breast at mid depth appears stable. These now show 18 months of stability. No mass is detected. The right axilla is unremarkable. IMPRESSION: Stable cluster of microcalcifications in the upper outer right breast at mid depth. This now shows 18 months of stability. The patient should return in 6 months for an additional 6 month followup mammogram. ACR BI-RADS Category 3: Probably benign findings. Result letter will be mailed to the patient. Note: At least 10% of breast cancer is not imaged by mammography. Dictated by: Dictated on workstation # [id number]
== END ==
LOC: RAD 14:15
PROVIDERS: ATTEND Obstetrics & Gynecology
DX: R92.0 Mammographic microcalcification found on diagnostic imaging of breast (principal)
CPT/HCPCS: 77065; G0279

== ENCOUNTER 2022-01-18 10:31 | Outpatient (RCR) | payer MEDICARE | END 2022-01-23 | disposition home or self-care (01) | PROVIDERS: ATTEND Family Medicine | DX: M22.2X1 Patellofemoral disorders, right knee (principal) ==

== ENCOUNTER → 2022-02-08 | Outpatient (CLI) | payer MEDICARE ==
--- NOTE | 2022-02-08 11:54 | Diagnostic Imaging Report ---
Indication: Routine screening. Comparison is made with prior mammograms 11/15/2020 and 10/19/2019. 2-D and 3-D bilateral screening mammography was performed with CAD. Both breasts are heterogeneously dense, limiting the sensitivity of mammography. A cluster of microcalcifications in the upper and outer aspects of the right breast appear stable. No new mass or malignant-appearing microcalcifications are seen. Axillae are unremarkable. IMPRESSION: BI-RADS Category 2 No mammographic features suspicious for malignancy are identified. ACR BI-RADS Category 2: Benign findings. Result letter will be mailed to the patient. Note: At least 10% of breast cancer is not imaged by mammography. Dictated by: Dictated on workstation # [id number]
== END ==
LOC: RAD 07:30
PROVIDERS: ATTEND Obstetrics & Gynecology
DX: Z12.31 Encounter for screening mammogram for malignant neoplasm of breast (principal)
CPT/HCPCS: 77063; 77067

== ENCOUNTER 2022-02-19 10:25 | Outpatient (RCR) | payer MEDICARE | END 2022-02-22 | disposition home or self-care (01) | PROVIDERS: ATTEND Family Medicine | DX: M22.2X1 Patellofemoral disorders, right knee (principal) ==

== ENCOUNTER 2022-02-28 10:57 | Outpatient (RCR) | payer MEDICARE | END 2022-02-28 13:45 | disposition home or self-care (01) | PROVIDERS: ATTEND Family Medicine | DX: M22.2X1 Patellofemoral disorders, right knee (principal) ==

== ENCOUNTER → 2023-03-12 | Outpatient (CLI) | payer MEDICARE ==
[~2023-03-12] MED LIST changes: -HYDR200T46 PO; +HYDR200T71 PO
--- NOTE | 2023-03-12 12:19 | Diagnostic Imaging Report ---
Indication: Routine screening. Comparison is made with prior mammogram from 02/08/2022 and 11/15/2020. 2-D and 3-D bilateral screening mammography was performed with CAD. Both breasts are heterogeneously dense, limiting the sensitivity of mammography. The parenchymal pattern is stable. There are benign calcifications bilaterally. No dominant mass or malignant-appearing microcalcifications are seen. Axillae are unremarkable. IMPRESSION: BI-RADS Category 2. No mammographic features suspicious for malignancy are identified. ACR BI-RADS Category 2: Benign findings. Result letter will be mailed to the patient. Note: At least 10% of breast cancer is not imaged by mammography. Dictated by: Dictated on workstation # [id number]
== END ==
LOC: RAD 07:45
PROVIDERS: ATTEND Obstetrics & Gynecology
DX: Z12.31 Encounter for screening mammogram for malignant neoplasm of breast (principal)
CPT/HCPCS: 77063; 77067